=== PATIENT | male | born 2000 | race Caucasian/White ===

== ENCOUNTER 2024-07-27 07:02 | Outpatient (OUT) | payer OTHER, SELFPAY ==
[2024-07-27 07:22] LABS: Basophils Percent Auto 0.6 % (0.2-2.0); Eosinophils Absolute Auto 0.3 10^3/uL (0.0-0.7); Eosinophils Percent Auto 5.2 % (0.9-7.0); Hematocrit 43.8 % (42.0-54.0); Hemoglobin 14.6 g/dL (14.0-18.0); Immature Granulocytes Abs Auto 0.01 10^3/uL (0.00-0.03); Immature Granulocytes Pct Auto 0.2 % (0.0-0.5); Lymphocytes Absolute Auto 1.4 10^3/uL (1.2-3.8); Lymphocytes Percent Auto 28.8 % (20.5-60.0); Mean Corpuscular HGB Conc 33.3 g/dL (29.9-35.2); Mean Corpuscular Hemoglobin 28.6 pg (25.9-34.0); Mean Corpuscular Volume 85.7 fL (80.0-94.0); Monocytes Absolute Auto 0.5 10^3/uL (0.3-0.8); Monocytes Percent Auto 9.9 % (1.7-12.0); Neutrophils Absolute Auto 2.8 10^3/uL (1.4-6.5); Neutrophils Percent Auto 55.3 % (43.0-75.0); Platelet Count 211 10^3/uL (150-450); Red Blood Count 5.11 10^6/uL (4.70-6.10); Red Cell Distribution Width 11.9 % (11.0-15.0)
[2024-07-27 08:12] LABS: Estimated Average Glucose 100 mg/dL; Glycohemoglobin A1C 5.1 % (4.5-6.2)
[2024-07-27 08:24] LABS: Cholesterol 210 mg/dL (<=200); Free T3 3.08 pg/mL (2.18-3.98); HDL Cholesterol 42 mg/dL (40-60); Triglycerides 89 mg/dL (<=150); VLDL CHOLESTEROL 17.8 mg/dL
[2024-07-28 09:07] LABS: Insulin 10.4 uIU/mL (2.6-24.9)
== END 2024-07-27 07:03 | disposition home or self-care (01) ==
LOC: LAB 07:06
PROVIDERS: PCP Family Medicine; Visit Provider Family Medicine
DX: G44.009 Cluster headache syndrome, unspecified, not intractable (principal); R53.83 Other fatigue; G47.00 Insomnia, unspecified
CPT/HCPCS: 36415; 80061; 83036; 83525; 84436; 84443; 84481; 85025